=== PATIENT | female | born 1945 | race Caucasian/White ===

== ENCOUNTER 2022-06-22 21:06 | Emergency (ER) | payer BC ==
[~2022-06-22] VITALS: Ht 160 cm; Wt 72.6 kg
[2022-06-22 21:47] VITALS: BP_SYST 136
--- NOTE | 2022-06-22 21:56 | NUR ---
First contact with the pt. Mechanical fall and hit her head. Denies blood thinner use. Denies LOC. AAO x4, VSS, RR even and unlabored. laceration noted on base of head. Not bleeding at this time.
[2022-06-22 23:11] VITALS: BP_SYST 142
== END 2022-06-22 23:12 | disposition home or self-care (01) ==
LOC: SED 21:06
DX: S01.01XA Laceration without foreign body of scalp, initial encounter (principal); E11.9 Type 2 diabetes mellitus without complications; I10 Essential (primary) hypertension; Z79.899 Other long term (current) drug therapy; W18.2XXA Fall in (into) shower or empty bathtub, initial encounter; Y93.89 Activity, other specified; Y92.89 Other specified places as the place of occurrence of the external cause; Y99.8 Other external cause status
CPT/HCPCS: 99282